=== PATIENT | female | born 1955 | race Caucasian/White ===

== ENCOUNTER 2020-01-20 08:23 | Emergency (ER) | payer OTHER, BC ==
[~2020-01-20] VITALS: Ht 165.1 cm; Wt 65.8 kg
[2020-01-20 08:29] VITALS: BP_SYST 123
--- NOTE | 2020-01-20 08:29 | NUR ---
Patient to ER bed 5 to gown for evaluation. Side rails up. Report given to BEULAH Desai.
--- NOTE | 2020-01-20 08:31 | NUR ---
Patient arrived in the ED c/o right flank pain that radiates to the abdominal pain that started 4 days ago. Denied any chest pain or shortness of breath. Denied any fevers, nausea, vomiting, or chills. Patient is alert and oriented x4, respirations even and unlabored, speaking in full sentences, ambulating with a steady gait. VSS, pain level 7/10. Informed of wait time. Instructed to notify ED staff for any changes in condition or worsening of symptoms. Patient verbalized understanding.
--- NOTE | 2020-01-20 08:57 | NUR ---
Patient ambulated to the bathroom with a steady gait. Urine specimen collected and dipped.
--- NOTE | 2020-01-20 09:01 | NUR ---
ER Dr. Bowser at bedside examining patient.
[2020-01-20] MEDS ORDERED: DIPHENHYDRAMINE INJ 50 MG/ML VIAL IVP ONE (09:15)
[2020-01-20] MEDS ORDERED: MORPHINE 2 MG/ML INJ. SYRINGE IVP ONE (09:15)
--- NOTE | 2020-01-20 09:40 | NUR ---
Administered Morphine Sulfate 4mg and Benadryl IVP as ordered by Dr. Bowser. Patient tolerated the medication well. See eMAR for details.
[2020-01-20 09:54] LABS: BASOPHILS % (AUTO) 0.8 % (0.0-2.0); EOSINOPHILS # (AUTO) 0.1 K/uL (0.0-0.4); EOSINOPHILS % (AUTO) 1.6 % (0.0-4.0); HEMATOCRIT 39.2 % (36-48); HEMOGLOBIN 13.1 g/dL (12.0-16.0); LYMPHOCYTES # (AUTO) 0.9 K/uL (1.0-5.5); LYMPHOCYTES % (AUTO) 18.2 % (20.5-51.5); MEAN CORPUSCULAR HEMOGLOBIN 31 pg (27-31); MEAN CORPUSCULAR HGB CONC 33 % (32-36); MEAN CORPUSCULAR VOLUME 94 fL (79.0-98.0); MONOCYTES # (AUTO) 0.4 K/uL (0.0-1.0); MONOCYTES % (AUTO) 7.3 % (1.7-9.3); NEUTROPHILS # (AUTO) 3.6 K/uL (1.8-7.7); NEUTROPHILS % (AUTO) 72.1 % (40.0-70.0); PLATELET COUNT (AUTO) 168 K/uL (130-430); RED BLOOD CELL COUNT(AUTO) 4.18 MIL/uL (4.2-6.2); WHITE BLOOD COUNT (AUTO) 4.9 K/uL (4.8-10.8)
--- NOTE | 2020-01-20 10:10 | NUR ---
ER Dr. Bowser at bedside re-examining patient.
[2020-01-20 10:36] LABS: CALCIUM 7.9 mg/dL (8.4-11.0); CREATININE 1.41 mg/dL (0.55-1.30); PROTHROMBIN TIME 9.8 SECS (9.5-12.5)
[2020-01-20 10:41] LABS: ALBUMIN 2.9 g/dL (3.4-4.8); TOTAL BILIRUBIN 0.5 mg/dL (0.0-1.0)
[2020-01-20 10:41] LABS: BILIRUBIN,URINE NEGATIVE (NEGATIVE); BLOOD, URINE NEGATIVE (NEGATIVE); CLARITY/URINE CLEAR (CLEAR); COLOR,URINE YELLOW (YELLOW); GLUCOSE,URINE NEGATIVE (NEGATIVE); KETONES,URINE NEGATIVE (NEGATIVE); LEUKOCYTE ESTERASE ,URINE NEGATIVE (NEGATIVE); NITRITE, URINE NEGATIVE (NEGATIVE); PROTEIN URINE NEGATIVE (NEGATIVE); UROBILINOGEN,URINE 0.2 (0.2-1.0)
[2020-01-20] MEDS ORDERED: NACL 0.9% 1,000 ML IV ONE (11:00)
--- NOTE | 2020-01-20 11:50 | NUR ---
DR HOLCOMB IN ROOM SPEAKING WITH PT RE: TEST RESULTS.
--- NOTE | 2020-01-20 11:52 | NUR ---
Patient signed a medical record release form and placed on chart. Obtained a disk from radiology.
[2020-01-20 12:16] VITALS: BP_SYST 123
== END 2020-01-20 12:16 | disposition home or self-care (01) ==
LOC: SED 08:23
DX: E86.0 Dehydration (principal); E07.9 Disorder of thyroid, unspecified; I10 Essential (primary) hypertension; J44.9 Chronic obstructive pulmonary disease, unspecified; Z90.710 Acquired absence of both cervix and uterus
CPT/HCPCS: 36415; 71045; 74176; 80053; 81003; 83605; 83690; 85025; 85610; 87040; 93005; 96361; 96374; 96375; 99285; J1200; J2270; J7030